=== PATIENT | male | born 1955 | race Caucasian/White ===

== ENCOUNTER → 2018-05-29 | Outpatient (CLI) | payer OTHER | END | disposition home or self-care (01) | LOC: CFH 13:17 | PROVIDERS: ATTEND Physician Assistant Surgical | DX: M54.16 Radiculopathy, lumbar region (principal) | CPT/HCPCS: 72148 ==

== ENCOUNTER 2018-07-15 05:23 | Inpatient (IN) | payer OTHER ==
[~2018-07-15] VITALS: Ht 170.2 cm; Wt 97.2 kg
[2018-07-15] MEDS ORDERED: MORPHINE SULFATE 4 MG/ML, 1ML ONE (05:38)
[2018-07-15] MEDS ORDERED: ONDANSETRON 2MG/ML, 2ML ONE (05:38)
[2018-07-15] MEDS ORDERED: MIDAZOLAM 1 MG/ML, 5ML ONE (05:41)
[2018-07-15 05:42] LABS: BASOPHILS # (AUTO) 0.05 x10^3/uL (0-0.1); BASOPHILS % (AUTO) 0 % (0-1); EOSINOPHILS # (AUTO) 0.25 x10^3/uL (0-0.4); EOSINOPHILS % (AUTO) 2 % (1-7); LYMPHOCYTES # (AUTO) 2.83 x10^3/uL (1-3.4); LYMPHOCYTES % (AUTO) 22 % (22-44); MD NO; MEAN CORPUSCULAR HEMOGLOBIN 31.3 pg (27.5-34.5); MEAN CORPUSCULAR HGB CONC 34.4 g/dL (33.2-36.2); MEAN CORPUSCULAR VOLUME 90.8 fL (81-97); MEAN PLATELET VOLUME 9.2 fL (7.4-10.4); MONOCYTES # (AUTO) 0.83 x10^3/uL (0.2-0.8); MONOCYTES % (AUTO) 7 % (2-9); NEUTROPHILS # (AUTO) 8.84 x10^3/uL (1.8-6.8); NEUTROPHILS % (AUTO) 69 % (42-75); PLATELET COUNT 152 x10^3/uL (130-400); RED BLOOD COUNT 5.63 x10^6/uL (4.38-5.82); RED CELL DISTRIBUTION WIDTH 13.9 % (9.4-14.8)
[2018-07-15] MEDS ORDERED: NITROGLYCERIN 5 MG/ML, 10ML ONE (05:42)
[2018-07-15] MEDS ORDERED: FENTANYL PF 100 MCG/2ML ONE (05:42)
[2018-07-15] MEDS ORDERED: TICAGRELOR 90 MG TABLET ONE (05:42)
[2018-07-15] MEDS ORDERED: LIDOCAINE 2%, 20ML ONE (05:42)
[2018-07-15] MEDS ORDERED: HEPARIN 1,000 UNITS/ML, 10ML ONE (05:42)
[2018-07-15] MEDS ORDERED: VERAPAMIL 2.5 MG/ML, 2ML ONE (05:42)
[2018-07-15] MEDS ORDERED: BIVALIRUDIN 250 MG ONE ×2 (05:42→07:03)
--- NOTE | 2018-07-15 05:42 | NUR ---
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 VOGEL
--- NOTE | 2018-07-15 05:43 | NUR ---
[facility] [phone]
--- NOTE | 2018-07-15 05:50 | NUR ---
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
[2018-07-15 05:52] LABS: INTERNATIONAL NORMALIZED RATIO 1.05 (0.93-1.1)
[2018-07-15] MEDS ORDERED: MORPHINE SULFATE 4 MG/ML, 1ML IVPush PRN ×2 (06:00→07:30)
[2018-07-15] MEDS ORDERED: ONDANSETRON 2MG/ML, 2ML IVPush ONE (06:00)
[2018-07-15] MEDS ORDERED: SODIUM CHLORIDE FLUSH 10ML SYR IVF PRN (06:00)
--- NOTE | 2018-07-15 06:01 | NUR ---
LATE ENTRY: PT SIGNED CONSENT PRIOR TO TRANSPORT TO [facility].
--- NOTE | 2018-07-15 06:07 | NUR ---
MULTIPLE ATTEMTPS WERE MADE TO CONTACT PTS . PHONE NUMBER GOES DIRECTLY TO [email or web address]. PT INFORMED.
[2018-07-15] MEDS ORDERED: BIVALIRUDIN 250 MG in SODIUM CHLORIDE 0.9% 50 ML IV SCH (07:13)
[2018-07-15] MEDS ORDERED: PRASUGREL 10 MG TABLET ONE (07:14)
[2018-07-15] MEDS ORDERED: ONDANSETRON 2MG/ML, 2ML IVPush PRN (07:30)
[2018-07-15] MEDS ORDERED: ZOLPIDEM 5MG TABLET PO PRN (07:30)
[2018-07-15] MEDS ORDERED: NITROGLYCERIN 0.4 MG/SPRAY SL PRN (07:30)
[2018-07-15] MEDS ORDERED: ACETAMINOPHEN 325 MG TABLET PO PRN (07:30)
[2018-07-15] MEDS ORDERED: NITROGLYCERIN 0.4 MG BOTTLE (25 TABS) SL PRN (07:30)
[2018-07-15] MEDS ORDERED: LABETALOL 5MG/ML, 20ML IVPush PRN (07:30)
[2018-07-15] MEDS: PRASUGREL 10 MG TABLET PO SCH (08:47)
[2018-07-15] MEDS: METOPROLOL TARTRATE 25 MG TABLET PO SCH ×2 (08:47→18:49)
[2018-07-15] MEDS: ASPIRIN 81 MG TABLET EC PO SCH (08:47)
[2018-07-15] MEDS: SODIUM CHLORIDE 0.9% 1,000 ML IV SCH ×3 (08:48→23:13)
[2018-07-15 13:35] VITALS: BP 108/63
[2018-07-15] MEDS: NICOTINE 14MG/24 HR PATCH.TD24 TD SCH (15:35)
[2018-07-15] MEDS: ATORVASTATIN 80 MG TABLET PO SCH (20:15)
[2018-07-15] MEDS: HYDROcodone/APAP 5/325 TABLET PO PRN (20:15)
[2018-07-16] MEDS: HYDROcodone/APAP 5/325 TABLET PO PRN ×2 (03:12→17:16)
[2018-07-16 03:16] LABS: ANION GAP 7 mmol/L (5-15); CHLORIDE 108 mmol/L (98-107); CREATININE 0.82 mg/dL (0.7-1.3)
[2018-07-16] MEDS: METOPROLOL TARTRATE 25 MG TABLET PO SCH ×2 (06:11→17:16)
[2018-07-16] MEDS: ASPIRIN 81 MG TABLET EC PO SCH (08:57)
[2018-07-16] MEDS: PRASUGREL 10 MG TABLET PO SCH (08:57)
[2018-07-16] MEDS: NICOTINE 14MG/24 HR PATCH.TD24 TD SCH (08:57)
[2018-07-16 10:14] LABS: ANION GAP 7 mmol/L (5-15); CALCIUM 9.3 mg/dL (8.5-10.1); CHLORIDE 108 mmol/L (98-107); CREATININE 0.91 mg/dL (0.7-1.3)
[2018-07-16 14:45] VITALS: BP 129/84
[2018-07-16 19:28] VITALS: BP 103/67
[2018-07-16] MEDS: ATORVASTATIN 80 MG TABLET PO SCH (20:33)
[2018-07-17 00:48] VITALS: BP 125/74
[2018-07-17 05:41] LABS: ANION GAP 6 mmol/L (5-15); CALCIUM 9.3 mg/dL (8.5-10.1); CHLORIDE 107 mmol/L (98-107)
[2018-07-17 05:42] LABS: CREATININE 0.94 mg/dL (0.7-1.3)
[2018-07-17 06:13] VITALS: BP 116/75
[2018-07-17] MEDS: METOPROLOL TARTRATE 25 MG TABLET PO SCH ×2 (06:20→17:39)
[2018-07-17] MEDS: NICOTINE 14MG/24 HR PATCH.TD24 TD SCH (08:03)
[2018-07-17] MEDS: ASPIRIN 81 MG TABLET EC PO SCH (08:03)
[2018-07-17] MEDS: PRASUGREL 10 MG TABLET PO SCH (08:03)
[2018-07-17] MEDS ORDERED: POLYETHYLENE GLYCOL 17 GM PACKET PO PRN (12:30)
[2018-07-17] MEDS ORDERED: DOCUSATE 100 MG CAPSULE PO PRN (12:30)
[2018-07-17 12:33] VITALS: BP 110/71
[2018-07-17 17:38] VITALS: BP 104/73
[2018-07-17 19:20] VITALS: BP 124/79
[2018-07-17] MEDS: ATORVASTATIN 80 MG TABLET PO SCH (19:39)
[2018-07-17 22:54] VITALS: BP 113/75
[2018-07-17] MEDS: HYDROcodone/APAP 5/325 TABLET PO PRN (22:56)
[2018-07-18 00:24] VITALS: BP 114/75
[2018-07-18 06:20] VITALS: BP 113/73
[2018-07-18] MEDS: METOPROLOL TARTRATE 25 MG TABLET PO SCH (06:24)
[2018-07-18] MEDS ORDERED: ATOR-2 PO (08:04)
[2018-07-18] MEDS ORDERED: METO25TA35 PO (08:04)
[2018-07-18] MEDS ORDERED: ASPI81TA45 PO (08:04)
[2018-07-18] MEDS ORDERED: PRAS10TA4 PO (08:04)
[2018-07-18] MEDS: ASPIRIN 81 MG TABLET EC PO SCH (08:17)
[2018-07-18] MEDS: PRASUGREL 10 MG TABLET PO SCH (08:17)
[2018-07-18 08:32] VITALS: BP 109/72
== END 2018-07-18 10:48 | disposition home or self-care (01) | DRG 247 ==
LOC: MERGE 05:23 → EDBD 05:23 → ED 05:40 → EDIP 05:46 → ED 05:50 → CCU 07:08 → ICU 07-16 03:07 → 5SO 07-16 13:01 → DCLOUNGE 07-18 10:24
PROVIDERS: ADMIT Family Medicine; ATTEND Family Medicine
PROC: 4A023N7 Measurement of Cardiac Sampling and Pressure, Left Heart, Percutaneous Approach (ICD-10-PCS; principal; 2018-07-15)
PROC: 027034Z Dilation of Coronary Artery, One Artery with Drug-eluting Intraluminal Device, Percutaneous Approach (ICD-10-PCS; 2018-07-15)
PROC: 02703ZZ Dilation of Coronary Artery, One Artery, Percutaneous Approach (ICD-10-PCS; 2018-07-15)
PROC: B2111ZZ Fluoroscopy of Multiple Coronary Arteries using Low Osmolar Contrast (ICD-10-PCS; 2018-07-15)
DX: I21.19 ST elevation (STEMI) myocardial infarction involving other coronary artery of inferior wall (principal); E11.9 Type 2 diabetes mellitus without complications; E78.5 Hyperlipidemia, unspecified; D72.829 Elevated white blood cell count, unspecified; I34.0 Nonrheumatic mitral (valve) insufficiency; J44.9 Chronic obstructive pulmonary disease, unspecified; I25.10 Atherosclerotic heart disease of native coronary artery without angina pectoris; I10 Essential (primary) hypertension; I25.2 Old myocardial infarction; Z72.0 Tobacco use; Z91.19 Patient's noncompliance with other medical treatment and regimen; Z88.0 Allergy status to penicillin; Z88.5 Allergy status to narcotic agent
CPT/HCPCS: 36415; 93454; 99285; C9600; J3490; 71045; 80047; 80048; 84484; 85014; 85018; 85025; 85610; 85730; 87081; 93005; 93306; 96374; 96375; 99156; 99157; C1760; C1769; C1894; G0378; J0583; J1644; J2250; J2405; J3010; C1725; C1874; C1887; J7030; Q9967

== ENCOUNTER → 2020-05-22 | Outpatient (CLI) | payer BC ==
[~2020-05-22] MED LIST: ASPI81TA45 PO; ATOR-2 PO; METO25TA35 PO; OMNIPAQUE 350 MG/ML, 75ML BOTTLE ONE; PRAS10TA4 PO
[2020-05-22 13:15] LABS: CREATININE 1.05 mg/dL (0.7-1.3)
== END | disposition home or self-care (01) ==
LOC: RAD 12:26
PROVIDERS: ATTEND Surgery
DX: I65.23 Occlusion and stenosis of bilateral carotid arteries (principal); I65.02 Occlusion and stenosis of left vertebral artery
CPT/HCPCS: 36415; 70498; 82565; Q9967

== ENCOUNTER 2020-07-08 14:32 | Inpatient (IN) | payer BC ==
[~2020-07-08] VITALS: Ht 170.2 cm; Wt 102.6 kg
[~2020-07-08 14:32] MED LIST changes: -OMNIPAQUE 350 MG/ML, 75ML BOTTLE ONE
[2020-07-21] MEDS ORDERED: ATOR-2 PO (15:14)
[2020-07-21] MEDS ORDERED: CLOP75TA PO (15:14)
[2020-07-21] MEDS ORDERED: LOSA50TA14 PO (15:14)
[2020-07-21] MEDS ORDERED: OMEG-14 PO (15:14)
[2020-07-21] MEDS ORDERED: METF500T17 PO (15:14)
[2020-07-21] MEDS ORDERED: METO25TA91 PO (15:14)
[2020-07-21] MEDS ORDERED: ASPI81TA45 PO (15:14)
[2020-07-21] MEDS ORDERED: SULF1TAB23 PO (15:14)
[2020-07-27] MEDS ORDERED: HEPARIN 1,000 UNITS/ML, 10ML ONE (14:26)
[2020-07-27] MEDS ORDERED: PAPAVERINE 30 MG/ML, 2ML ONE (14:26)
[2020-07-27] MEDS ORDERED: BUPIVACAINE/PF 0.5% ONE (14:26)
[2020-07-27] MEDS ORDERED: LIDOCAINE/PF 1%, 30ML ONE (14:27)
[2020-07-27] MEDS ORDERED: THROMBIN 20,000 UNIT VIAL TP ONE (14:27)
[2020-07-27] MEDS ORDERED: CHLORHEXIDINE 15 ML UDC PO ONE (15:30)
[2020-07-27] MEDS ORDERED: LACTATED RINGERS 1,000 ML IV SCH (15:30)
[2020-07-27] MEDS ORDERED: CHLORHEXIDINE 15 ML UDC ONE (15:47)
[2020-07-27] MEDS ORDERED: FENTANYL PF 100 MCG/2ML ONE ×3 (17:03→20:38)
[2020-07-27] MEDS ORDERED: MIDAZOLAM 1 MG/ML, 2ML ONE (17:06)
[2020-07-27] MEDS ORDERED: ONDANSETRON 2MG/ML, 2ML IVPush PRN (17:30)
[2020-07-27] MEDS ORDERED: OXYcodone 5 MG/5 ML ORAL.SOL UDC PO PRN (17:30)
[2020-07-27] MEDS ORDERED: FENTANYL PF 100 MCG/2ML IV PRN (17:30)
[2020-07-27] MEDS ORDERED: EPHEDRINE 50 MG/ML, 1ML IVPush PRN (17:30)
[2020-07-27] MEDS ORDERED: PROMETHAZINE 25 MG/ML, 1ML IVPush PRN (17:30)
[2020-07-27] MEDS ORDERED: HYDROmorphone 1 MG/ML, 1ML INJ IVPush PRN (17:30)
[2020-07-27] MEDS ORDERED: hydrALAzine 20 MG/ML, 1ML IV PRN ×2 (17:30→23:00)
[2020-07-27] MEDS ORDERED: LABETALOL 5MG/ML, 20ML IV PRN (17:30)
[2020-07-27] MEDS ORDERED: DEXAMETHASONE 4 MG/ML, 5ML ONE (17:47)
[2020-07-27] MEDS ORDERED: LIDOCAINE-MPF 2% ,5ML ONE (17:48)
[2020-07-27] MEDS ORDERED: KETOROLAC 30 MG/1 ML ONE (17:48)
[2020-07-27] MEDS ORDERED: CEFAZOLIN 1,000 MG ONE (17:52)
[2020-07-27] MEDS ORDERED: SUCCINYLCHOLINE 20 MG/ML, 10ML ONE (17:52)
[2020-07-27] MEDS ORDERED: BUPIVACAINE/PF-EPI 0.5% 1:200K INFIL ONE (17:52)
[2020-07-27] MEDS ORDERED: ONDANSETRON 2MG/ML, 2ML ONE (17:52)
[2020-07-27] MEDS ORDERED: HEPARIN 1,000 UNITS/ML, 1ML IV ONE (17:52)
[2020-07-27] MEDS ORDERED: PROPOFOL 10 MG/ML, 20ML ONE (17:52)
[2020-07-27] MEDS ORDERED: PHENYLEPHRINE 10 MG/ML ONE (17:52)
[2020-07-27] MEDS ORDERED: HYDROmorphone 1 MG/ML, 1ML INJ ONE (18:25)
[2020-07-27] MEDS ORDERED: hydrALAzine 20 MG/ML, 1ML ONE (19:18)
[2020-07-27] MEDS ORDERED: OXYcodone 5 MG/5 ML ORAL.SOL UDC ONE (20:39)
[2020-07-27] MEDS ORDERED: LABETALOL 5MG/ML, 20ML IVPush PRN (23:00)
[2020-07-27] MEDS: D5%-LACTATED RINGERS 1,000 ML IV SCH (23:00)
[2020-07-27] MEDS ORDERED: ACETAMINOPHEN 325 MG TABLET PO PRN (23:00)
[2020-07-27] MEDS ORDERED: ONDANSETRON 2MG/ML, 2ML IV PRN (23:00)
[2020-07-27] MEDS ORDERED: morphine SULFATE 10 MG/ML, 1ML IV PRN (23:00)
[2020-07-28 00:08] VITALS: BP 104/65
[2020-07-28] MEDS: CEFAZOLIN PMX 2GM/50ML 50 ML IVPB SCH ×2 (01:40→09:21)
[2020-07-28 04:04] VITALS: BP 107/66
[2020-07-28] MEDS: HYDROcodone/APAP 5/325 TABLET PO PRN ×3 (05:35→14:19)
[2020-07-28] MEDS ORDERED: ASPIRIN 81 MG TABLET EC PO SCH (06:00)
[2020-07-28] MEDS ORDERED: METOPROLOL SUCCINATE 25 MG TAB.ER.24H PO SCH (06:00)
[2020-07-28 06:21] VITALS: BP 98/54
[2020-07-28 06:43] VITALS: BP 114/51
[2020-07-28] MEDS ORDERED: LOSARTAN 50MG TABLET PO SCH (09:00)
[2020-07-28] MEDS ORDERED: CLOPIDOGREL 75 MG TABLET PO SCH (09:00)
[2020-07-28] MEDS ORDERED: SULFAMETH./TRIMETHOPRIM SS 400MG/80MG TABLET PO SCH (09:00)
[2020-07-28] MEDS: INSULIN REGULAR, HUMAN 100 UNITS/ML, 3ML MEDIUM DOSE SS SQ-INSULIN SCH ×3 (09:22→16:46)
[2020-07-28] MEDS: D5%-LACTATED RINGERS 1,000 ML IV SCH (09:23)
[2020-07-28 09:24] VITALS: BP 119/55
[2020-07-28] MEDS ORDERED: HYDR-2214 PO ×2 (12:41→14:37)
[2020-07-28 13:44] VITALS: BP 123/63
[2020-07-28] MEDS ORDERED: ATORVASTATIN 80 MG TABLET PO SCH (21:00)
== END 2020-07-28 17:45 | disposition home or self-care (01) | DRG 39 ==
LOC: 4NE 07-27 22:26
PROVIDERS: ADMIT Surgery; ATTEND Surgery
PROC: 03UJ0KZ Supplement Left Common Carotid Artery with Nonautologous Tissue Substitute, Open Approach (ICD-10-PCS; 2020-07-27)
PROC: 03CJ0ZZ Extirpation of Matter from Left Common Carotid Artery, Open Approach (ICD-10-PCS; principal; 2020-07-27 17:00)
DX: I65.22 Occlusion and stenosis of left carotid artery (principal); E66.9 Obesity, unspecified; E78.5 Hyperlipidemia, unspecified; I10 Essential (primary) hypertension; I25.10 Atherosclerotic heart disease of native coronary artery without angina pectoris; E11.9 Type 2 diabetes mellitus without complications; J32.9 Chronic sinusitis, unspecified; I25.2 Old myocardial infarction; Z79.899 Other long term (current) drug therapy; Z68.35 Body mass index [BMI] 35.0-35.9, adult; Z88.0 Allergy status to penicillin; Z88.5 Allergy status to narcotic agent
CPT/HCPCS: 36415; J3490; S0020; 82962; 86850; 86900; 88305; G0378; J0690; J1100; J1170; J1644; J1815; J1885; J2250; J2405; J2704; J3010; C1768; J0330; J0360; J2370; J2440; J7120; J7121

== ENCOUNTER → 2020-07-21 | Outpatient (CLI) | payer BC ==
[~2020-07-21] MED LIST changes: +CLOP75TA PO; +LOSA50TA14 PO; +METF500T17 PO; +METO25TA91 PO; +OMEG-14 PO; +SULF1TAB23 PO
[2020-07-21 15:40] LABS: ALANINE AMINOTRANSFERASE 57 U/L (12-78); ALBUMIN 4.3 g/dL (3.4-5.0); ANION GAP 5 mmol/L (5-15); CALCIUM 9.5 mg/dL (8.5-10.1); CHLORIDE 107 mmol/L (98-107)
[2020-07-21 15:42] LABS: BASOPHILS % (AUTO) 1 % (0-1); EOSINOPHILS % (AUTO) 5 % (1-7); LYMPHOCYTES % (AUTO) 30 % (22-44); MEAN CORPUSCULAR HEMOGLOBIN 30.7 pg (27.5-34.5); MEAN PLATELET VOLUME 8.8 fL (7.4-10.4); MONOCYTES % (AUTO) 8 % (2-9); NEUTROPHILS % (AUTO) 56 % (42-75); PLATELET COUNT 153 x10^3/uL (130-400); RED BLOOD COUNT 4.81 x10^6/uL (4.38-5.82); RED CELL DISTRIBUTION WIDTH 13.6 % (9.4-14.8)
[2020-07-21 15:43] LABS: ALKALINE PHOSPHATASE 61 U/L (45-117); BILIRUBIN,TOTAL 0.8 mg/dL (0.2-1.0); CREATININE 1.07 mg/dL (0.7-1.3); TOTAL PROTEIN 7.8 g/dL (6.4-8.2)
[2020-07-21 15:46] LABS: MD NO
== END | disposition home or self-care (01) ==
LOC: STAR 14:25
PROVIDERS: ATTEND Surgery
DX: Z01.818 Encounter for other preprocedural examination (principal); I65.23 Occlusion and stenosis of bilateral carotid arteries; R94.31 Abnormal electrocardiogram [ECG] [EKG]; Z20.822 Contact with and (suspected) exposure to COVID-19
CPT/HCPCS: 36415; 80053; 85025; 93005; U0003

== ENCOUNTER 2020-08-13 21:25 | Emergency (ER) | payer BC ==
[~2020-08-13] VITALS: Ht 170.2 cm; Wt 101.7 kg
[~2020-08-13 21:25] MED LIST changes: +HYDR-2214 PO
--- NOTE | 2020-08-13 21:35 | NUR ---
EKG COMPLETE IN TRIAGE.
[2020-08-13] MEDS ORDERED: SODIUM CHLORIDE FLUSH 10ML SYR IVF ONE (22:00)
[2020-08-13] MEDS ORDERED: ASPIRIN 81 MG TABLET CHEW PO ONE (22:00)
[2020-08-13] MEDS ORDERED: ASPIRIN 81 MG TABLET CHEW ONE (22:03)
[2020-08-13 22:28] LABS: BASOPHILS % (AUTO) 1 % (0-1); EOSINOPHILS % (AUTO) 3 % (1-7); LYMPHOCYTES % (AUTO) 23 % (22-44); MEAN CORPUSCULAR HEMOGLOBIN 31.1 pg (27.5-34.5); MEAN CORPUSCULAR HGB CONC 34.3 g/dL (33.2-36.2); MEAN PLATELET VOLUME 8.4 fL (7.4-10.4); MONOCYTES % (AUTO) 8 % (2-9); NEUTROPHILS % (AUTO) 65 % (42-75); PLATELET COUNT 186 x10^3/uL (130-400); RED BLOOD COUNT 4.43 x10^6/uL (4.38-5.82); RED CELL DISTRIBUTION WIDTH 13.3 % (9.4-14.8)
[2020-08-13 22:30] LABS: MD NO
[2020-08-13 22:41] LABS: ALANINE AMINOTRANSFERASE 57 U/L (12-78); ALBUMIN 3.7 g/dL (3.4-5.0); ANION GAP 5 mmol/L (5-15); CALCIUM 9.1 mg/dL (8.5-10.1); CHLORIDE 106 mmol/L (98-107); CREATININE 1.03 mg/dL (0.7-1.3)
--- NOTE | 2020-08-13 22:41 | NUR ---
REPORT FROM BURKE DURAN. PT RESTING COMFORTABLY, STATES HE IS STILL HAVING CP. 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 OXY MASK PLACED ON PT. AT BEDSIDE
[2020-08-13 22:45] LABS: ALKALINE PHOSPHATASE 60 U/L (45-117); BILIRUBIN,TOTAL 0.6 mg/dL (0.2-1.0); TOTAL PROTEIN 7.1 g/dL (6.4-8.2); TROPONIN I < 0.015 ng/mL (0.000-0.045)
[2020-08-13] MEDS ORDERED: OMNIPAQUE 350 MG/ML, 75ML BOTTLE ONE (23:01)
[2020-08-13] MEDS ORDERED: methylPREDNISolone SOD SUCC 125 MG/2 ML ONE (23:47)
[2020-08-13] MEDS ORDERED: ALBUTEROL/IPRATROPIUM 2.5MG/0.5MG, 3 ML ONE (23:47)
[2020-08-14] MEDS ORDERED: ALBUTEROL/IPRATROPIUM 2.5MG/0.5MG, 3 ML NPPB ONE
[2020-08-14] MEDS ORDERED: methylPREDNISolone SOD SUCC 125 MG/2 ML IV ONE
--- NOTE | 2020-08-14 00:12 | NUR ---
PT REPORTS "I CAN TAKE A DEEP BREATH NOW" AFTER FINISHING BREATHNG TREATMENT. OXYGEN 96-97% RA
[2020-08-14 00:38] VITALS: BP 136/57
== END 2020-08-14 00:39 | disposition home or self-care (01) ==
LOC: ED 23:27
DX: R07.2 Precordial pain (principal); R06.00 Dyspnea, unspecified; J20.8 Acute bronchitis due to other specified organisms; E11.9 Type 2 diabetes mellitus without complications; I25.2 Old myocardial infarction; I25.10 Atherosclerotic heart disease of native coronary artery without angina pectoris; Z87.891 Personal history of nicotine dependence
CPT/HCPCS: 36415; 71275; 80053; 83880; 84484; 85025; 93005; 94640; 96374; 99285; J2930; Q9967